=== PATIENT | male | born 1965 | race Caucasian/White ===

== ENCOUNTER 2024-01-10 15:12 | Emergency (ER) | payer BC, OTHER ==
[2024-01-10] MEDS: Aspirin 81 MG Tab.Chew PO ONE (15:20)
[2024-01-10 15:29] LABS: BASOPHILS ABSOLUTE AUTO 0.1 x10-3/uL (0.0-0.3); BASOPHILS PERCENT AUTO 0.5 % (0.3-3.8); EOSINOPHILS ABSOLUTE AUTO 0.2 x10-3/uL (0.0-0.6); EOSINOPHILS PERCENT AUTO 1.5 % (0.1-6.8); HEMATOCRIT 45.4 % (38.3-50.1); HEMOGLOBIN 15.5 g/dL (12.9-17.7); LYMPHOCYTES ABSOLUTE AUTO 2.4 x10-3/uL (0.5-4.5); LYMPHOCYTES PERCENT AUTO 23.5 % (15.8-45.3); MEAN CORPUSCULAR HEMOGLOBIN 30.3 pg (27.0-33.3); MEAN CORPUSCULAR HGB CONC 34.2 g/dL (28.7-35.3); MEAN CORPUSCULAR VOLUME 88.5 fL (80.8-98.7); MEAN PLATELET VOLUME 7.4 fL (6.7-11.0); MONOCYTES ABSOLUTE AUTO 1.1 x10-3/uL (0.0-1.2); MONOCYTES PERCENT AUTO 10.4 % (5.5-15.2); NEUTROPHILS ABSOLUTE AUTO 6.6 x10-3/uL (1.7-6.9); NEUTROPHILS PERCENT AUTO 64.1 % (40.3-71.8); PLATELET COUNT,PLT 175 x10(3)uL (117-477); RED BLOOD CELL COUNT 5.13 x10(6)uL (3.90-5.90); RED CELL DISTRIBUTION WIDTH 13.6 % (12.4-15.0); WHITE BLOOD CELL COUNT,WBC 10.3 x10-3/uL (3.2-10.1)
[2024-01-10] MEDS: Sodium Chloride 0.9% 10 ML Syringe FLUSH PRN (15:30)
[2024-01-10] MEDS: Nitroglycerin 0.4 MG Tab.SL SL PRN (15:32)
[2024-01-10 15:33] LABS: BLOOD UREA NITROGEN,BUN 16 mg/dL (7-18); CALCIUM 9.4 mg/dL (8.6-10.2); CARBON DIOXIDE,CO2 24 mmol/L (21-32); CHLORIDE,CL 102 mmol/L (100-110); CREATININE 0.8 mg/dL (0.70-1.30); ESTIMATED GFR 103 mL/min (>60); GLUCOSE RANDOM 115 mg/dL (80-116); POTASSIUM,K 4.2 mmol/L (3.5-5.3); SODIUM,NA 137 mmol/L (135-145)
[2024-01-10 15:39] LABS: A/G RATIO 0.9; ALANINE AMINOTRANSFERASE,ALT 62 U/L (12-36); ALBUMIN 3.9 g/dL (3.5-5.2); ALKALINE PHOSPHATASE 98 IU/L (56-112); ASPARTATE AMNIOTRANSFERASE,AST 44 IU/L (5-25); BILIRUBIN TOTAL 0.6 mg/dL (0.1-1.3); PROTEIN TOTAL,TP 8.2 g/dL (6.0-8.0)
[2024-01-10 15:40] LABS: INR 0.95 (1.00-1.24); PROTHROMBIN TIME 9.9 sec (9.0-11.1); PTT,PARTIAL THROMBOPLSTIN TIME 26.2 SECONDS (24.4-33.2)
[2024-01-10 15:46] LABS: TROPONIN I 8.7 pg/mL (4.0-60.3)
== END 2024-01-10 17:43 | disposition home or self-care (01) ==
LOC: FB.ED 15:12
DX: I10 Essential (primary) hypertension (principal); E78.5 Hyperlipidemia, unspecified; Z88.0 Allergy status to penicillin; Z79.899 Other long term (current) drug therapy
CPT/HCPCS: 36415; 71045; 80053; 83880; 84484; 85025; 85610; 85730; 93005; 93010; 99283; 99285; A9270-GY; J3490